=== PATIENT | male | born 1990 | race Caucasian/White ===

== ENCOUNTER 2019-01-30 20:15 | Emergency (ER) | payer BC, OTHER ==
[~2019-01-30] VITALS: Ht 188 cm; Wt 120.1 kg
[2019-01-30 20:16] VITALS: BP 138/84
[2019-01-30] MEDS ORDERED: DERMABOND TOPICAL SKIN ADHESIVE TOP ONE (23:00)
== END 2019-01-30 23:21 | disposition home or self-care (01) ==
LOC: M ED 20:15
DX: S61.211A Laceration without foreign body of left index finger without damage to nail, initial encounter (principal); W26.8XXA Contact with other sharp object(s), not elsewhere classified, initial encounter; Y92.018 Other place in single-family (private) house as the place of occurrence of the external cause

== ENCOUNTER → 2021-10-27 | Outpatient (CLI) | payer OTHER | LOC: M RAD 13:55 | PROVIDERS: ATTEND Orthopaedic Surgery Hand Surgery | DX: R93.7 Abnormal findings on diagnostic imaging of other parts of musculoskeletal system (principal); M25.562 Pain in left knee ==

== ENCOUNTER 2021-12-04 08:13 | Outpatient (RCR) | payer OTHER | END 2021-12-09 | LOC: M PT 08:13 | PROVIDERS: ATTEND Orthopaedic Surgery Hand Surgery | DX: M25.562 Pain in left knee (principal) ==

== ENCOUNTER → 2021-12-12 | Outpatient (CLI) | payer BC, OTHER | LOC: M SLEEP HO 10:00 | PROVIDERS: ATTEND Physician Assistant | DX: G47.10 Hypersomnia, unspecified (principal) ==

== ENCOUNTER 2021-12-25 09:56 | Outpatient (RCR) | payer OTHER | END 2022-01-08 | LOC: M PT 09:56 | PROVIDERS: ATTEND Orthopaedic Surgery Hand Surgery | DX: M25.562 Pain in left knee (principal) ==

== ENCOUNTER 2022-01-30 09:20 | Outpatient (RCR) | payer OTHER | END 2022-02-08 | LOC: M PT 09:20 | PROVIDERS: ATTEND Orthopaedic Surgery Hand Surgery | DX: M25.562 Pain in left knee (principal) ==